=== PATIENT | male | born 2000 | race Caucasian/White ===

== ENCOUNTER 2022-07-01 15:40 | Emergency (ER) | payer BC ==
[2022-07-01 16:00] VITALS: BP 143/87; PULSE 105; RESP 18; TEMP 101; BMI 35.4
[2022-07-01] MEDS ORDERED: ACETAMINOPHEN 325 MG TABLET (FP) PO ONE (16:51)
[2022-07-01] MEDS ORDERED: ACETAMINOPHEN 325 MG TABLET (FP) ONE (16:56)
== END 2022-07-01 17:32 | disposition home or self-care (01) ==
LOC: FER 15:40
DX: B34.9 Viral infection, unspecified (principal)
CPT/HCPCS: 87651; 99283-25; C9803-CS; U0003; U0005

== ENCOUNTER 2024-05-20 13:11 | Emergency (ER) | payer BC, OTHER ==
[2024-05-20 13:37] VITALS: BP 113/75; PULSE 88; RESP 20; TEMP 98.2; BMI 34.4
[2024-05-20] MEDS ORDERED: FLUORESCEIN NA 1 EA STRIP ONE (14:46)
[2024-05-20] MEDS ORDERED: TETRACAINE 0.5% OPHTH SOLN 2 ML BOTTLE ONE (14:47)
[2024-05-20] MEDS: FLUORESCEIN NA 1 EA STRIP OS ONE (15:04)
[2024-05-20] MEDS: TETRACAINE 0.5% OPHTH SOLN 2 ML BOTTLE OS ONE (15:04)
== END 2024-05-20 15:33 | disposition home or self-care (01) ==
LOC: JERFT 13:11
DX: L24.5 Irritant contact dermatitis due to other chemical products (principal); T65.6X1A Toxic effect of paints and dyes, not elsewhere classified, accidental (unintentional), initial encounter; T26.92XA Corrosion of left eye and adnexa, part unspecified, initial encounter
CPT/HCPCS: 99283-25